=== PATIENT | female | born 1965 | race Caucasian/White ===

== ENCOUNTER 2024-03-25 20:11 | Emergency (ER) | payer BC, SELFPAY ==
[2024-03-25 20:20] VITALS: BP 183/85
[2024-03-25 20:36] LABS: % Basophils 0.5 % (0-2); % Eosinophils 2.2 % (0-6); % Immature Granulocytes 0.3 % (0-0.5); % Lymphocytes 33.2 % (20.5-51.1); % Monocytes 5.2 % (1.7-9.3); % Neutrophils 58.6 % (42.2-75.2); Absolute Eosinophils 0.2 10^3/uL (0-0.7); Absolute Lymphocytes 2.9 10^3/uL (1.2-3.4); Absolute Monocytes 0.5 10^3/uL (0.1-0.6); Absolute Neutrophils 5.1 10^3/uL (1.4-6.5); Hematocrit 37.7 % (37.0-47.0); Hemoglobin 13.3 g/dL (12.0-16.0); Mean Corp Hgb Conc. 35.3 g/dL (33.0-37.0); Mean Corpuscular Volume 84.9 fL (81.0-99.0); Mean Platelet Volume 10.4 fL (7.4-10.4); Nucleated Red Blood Cells % 0 %; Platelet Count 240 10^3/uL (130-400); Red Blood Cell Count 4.44 10^6/uL (4.20-5.40); Red Cell Dist. Width 13.4 % (11.5-14.5); White Blood Cell Count 8.7 10^3/uL (4.8-10.8)
[2024-03-25 21:01] LABS: ALT (SGPT) 25 U/L (0-35); AST (SGOT) 31 U/L (14-36); Albumin 4.6 g/dl (3.5-5.0); Alkaline Phosphatase 73 U/L (38-126); Blood Urea Nitrogen 27 mg/dl (7-17); Calcium 9.4 mg/dl (8.4-10.2); Carbon Dioxide 29 mmol/L (22-30); Chloride 102 mmol/L (98-107); Glucose 117 mg/dl (70-99); Potassium 4.1 mmol/L (3.5-5.1); Sodium 142 mmol/L (135-145); Total Bilirubin 0.4 mg/dl (0.2-1.3); Total Protein 6.9 g/dl (6.3-8.2); eGFR > 60.00
[2024-03-25 21:02] LABS: Troponin I < 0.012 ng/ml
--- NOTE | 2024-03-25 22:53 | ED.GENMED ---
History of Present Illness
<RODDY Serrato - Last Filed: 03/26/24 01:47>
General
Chief Complaint: Chest Pain
Source: patient and family
Time Seen by Provider: 03/25/24 22:44
Nursing documentation reviewed up to this point in time: agreed with
History of Present Illness
History of Present Illness:
Patient is a 58 year old female presenting to the ED with complaints of chest pain x 1 day. She states it started last night and described it as a chest tightness. It starts in the middle of the chest and radiates around her entire back. She said it
felt like she had a waist band on around her chest. The pain is not worse with movement. Currently the pain is rated a 4/10 but the severity comes and goes. She had a near syncopal episode in [place] 3[place] in [place] where she got dizzy and light
headed. She currently is not dizzy. Patient denies loss of consciousness and any sort of fall. Something like this has never happened to her before. She denies palpitations sob headache fever abdominal pain.
Patient has a PMH of HTN which is controlled on verapamil and carvedilol. Patient also has a history of controlled anemia asthma and GERD. She denies any alcohol or tobacco use.
Past History
<RODDY Serrato - Last Filed: 03/26/24 01:47>
Past History
ED Past Medical History: Asthma, GERD, Other and Other
Patient has exhibited threatening behavior?: No
Social History
Tobacco: Non-smoker
Personal:
Living: with family
Employment: Employed
Review of Systems
<RODDY Serrato - Last Filed: 03/26/24 01:47>
Review of Systems
Allergies reviewed?: Yes
Other source history: family
Constitutional: Reports no symptoms
Respiratory: Reports no symptoms
Cardiac: Reports chest pain
ABD/GI: Reports no symptoms
Neurological: Reports dizzy
Phy Exam
<Guy Roa [facility] - Last Filed: 03/26/24 01:47>
General Physical Exam
General Presentation: well appearing
General age: appears stated age
General Skin: warm
General Habitus: normal
General Mental: alert
Cardiovascular Exam
Cardiovascular Exam: regular rate/rhythm, no edema, no gallop, no JVD and no murmur
Pulmonary Exam
Pulmonary Exam: lungs clear, no respiratory distress, no rales, chest non tender, no crackles, no rhonchi, no stridor, no wheezing and no cough
Scores
<Guy Janina, [facility] - Last Filed: 03/26/24 01:47>
Heart Score for Chest Pain Patients
STEMI patient?: No
History: Slightly or Non-Suspicious
ECG: Normal
Age: >45 - <65 years
Risk Factors: No Risk Factors
Troponin: </= Normal Limit
Heart Score for Chest Pain Patients: 1
Heart Score Risk: 2.5% MACE over next 6 weeks
Course
<Guy Alonsodoreen [facility] - Last Filed: 03/26/24 01:47>
Orders/Labs/Results
Orders:
Orders
03/25/24 20:11
Electrocardiogram (*1) Urgent
Reason for Study: Chest Pain
EKG- Treatment ONCE
03/25/24 20:30
Complete Blood Count/With Diff Urgent
Comprehensive Metabolic Panel Urgent
Troponin I Urgent
03/26/24 00:38
CR Chest - 2 Views Urgent
Comment:
Reason For Exam: cp
Abnormal Lab Results
03/25/24
20:30
BUN 27 H mg/dl
(7-17)
Glucose 117 H mg/dl
(70-99)
03/25/24 20:30
03/25/24 20:30
Vital Signs
Initial and Last Documented VS:
Initial Vital Signs
Temp Pulse Resp BP Pulse Ox
98.5 F 73 18 183/85 100
03/25/24 20:20 03/25/24 20:20 03/25/24 20:20 03/25/24 20:20 03/25/24 20:20
Last Documented Vital Signs
Temp Pulse Resp BP Pulse Ox
98.5 F 63 13 136/68 98
03/25/24 20:20 03/26/24 00:30 03/26/24 00:30 03/26/24 00:09 03/26/24 00:30
<Bradly Steele, DO - Last Filed: 03/26/24 00:43>
Orders/Labs/Results
Orders:
Orders
03/25/24 20:11
Electrocardiogram (*1) Urgent
Reason for Study: Chest Pain
EKG- Treatment ONCE
03/25/24 20:30
Complete Blood Count/With Diff Urgent
Comprehensive Metabolic Panel Urgent
Troponin I Urgent
03/26/24 00:38
CR Chest - 2 Views Urgent
Comment:
Reason For Exam: cp
Abnormal Lab Results
03/25/24
20:30
BUN 27 H mg/dl
(7-17)
Glucose 117 H mg/dl
(70-99)
03/25/24 20:30
03/25/24 20:30
Vital Signs
Initial and Last Documented VS:
Initial Vital Signs
Temp Pulse Resp BP Pulse Ox
98.5 F 73 18 183/85 100
03/25/24 20:20 03/25/24 20:20 03/25/24 20:20 03/25/24 20:20 03/25/24 20:20
Last Documented Vital Signs
Temp Pulse Resp BP Pulse Ox
98.5 F 63 13 136/68 98
03/25/24 20:20 03/26/24 00:30 03/26/24 00:30 03/26/24 00:09 03/26/24 00:30
<RODDY Serrato - Last Filed: 03/26/24 01:47>
MDM/Problems Addressed
Differential Diagnosis Includes:
stable angina, anxiety, GERD, anemia
MDM/Problems Addressed:
order labs, give fluids, monitor
<RODDY Serrato - Last Filed: 03/26/24 01:47>
*Critical Care Note
Total Time (30-74mins, 75-104mins- exclusive of procedures): Not Applicable
<Bradly Steele DO - Last Filed: 03/26/24 00:43>
*Radiology
Radiology exam reviewed: all reviewed NAD by ED Provider
*Pulse Oximetry
Patient hypoxic: no
*EKG
Interpreted by ED Provider?: Yes
EKG Intrepretation Date: 03/26/24
Interpretation: normal
Comparison EKG: no comparison EKG present
Heart Rate: 63
Rate: normal
[place]: left axis deviation
Interval: normal interval
QRS Pattern: normal QRS
Ischemia: non-specific ST changes
ED Attending Note
<RODDY Serrato - Last Filed: 03/26/24 01:47>
-
Portions of this chart may have been created with voice recognition software.� Occasional wrong word or��sound alike� substitutions may have occurred due to the inherent limitations of voice recognition software.
<Bradly Steele DO - Last Filed: 03/26/24 00:43>
ED Attending Note
Patient seen and examined by attending physician: Yes
I performed the substantive portion of visit, reviewed & personally made and approve the management plan that is documented in note by myself or MIGDALIA.: Yes
ED Attending Note:
This is a pleasant 58-year-old female presents with chest pain which she states that she has had for the last day. She states that it started nearly 24 hours ago. She reports at this time tightness. It is in the middle of her chest and radiates
through to her back. She states that nothing alleviates or exacerbates the pain. She does report she was shopping with her daughter yesterday and felt lightheaded. She does report that she is not very good with hydration. She had seen a
tension worker in the past but has not followed up since the initial visit. Patient denies tach palpitations. Patient has past medical history significant for hypertension. She is on verapamil and carvedilol. Patient was seen in conjunction with
the PA student. I have reviewed and agree with the history and treatment plan presented. On my independent physical exam, patient is awake, alert, and oriented x3 minimal to no acute distress. Heart is regular rate and rhythm. Lungs are clear to
auscultation bilaterally without wheezes rales or rhonchi present. Moves all 4 extremities. Skin is warm and dry. No pedal edema noted. Troponin is negative.
Chest x-ray ordered.
Will follow-up with [facility] cardiology.
Discharge Plan
Departure
Patient Disposition: Home (Routine Discharge)
Date of Disposition: 03/26/24
Time of Disposition: 00:42
Patient with high blood pressure during this ER visit?: Yes
Condition: Good
Discharge Problem:
Chest pain, Acute dehydration
Instructions: Chest Pain CBC Follow Up, BLOOD PRESSURE
Prescriptions:
No Action
cetirizine 10 MG tablet
10 mg PO DAILY
ascorbic acid (vitamin C) [Vitamin C] 500 MG tablet
1,000 mg PO BID
verapamil 240 MG tablet extended release
240 mg PO DAILY
carvedilol 6.25 MG tablet
6.25 mg PO AMHS
atorvastatin 20 MG tablet
20 mg PO DAILY
carvedilol 3.125 MG tablet
3.125 mg PO DAILY
cholecalciferol (vitamin D3) [Vitamin D3] 1,000 UNIT capsule
1,000 unit PO DAILY
[id number]-vit K-lut [Centrum Silver Women] 1 EACH tablet
1 PO DAILY
Referrals:
Lola Wright MD [Family Provider] -
Interventions
Interventions:
*Risk Screen - Suicide Last Done: 03/25/24 20:20
*General Assessment Last Done: 03/25/24 20:20
*Neglect/Abuse Screening Last Done: 03/25/24 20:20
ED- Fall Risk Assessment Last Done: 03/26/24 00:40
*ED COVID-19 Vaccine History Last Done: 03/26/24 00:39
*Nursing Disposition Last Done: 03/26/24 01:15
ED- Cardiac Assessment Last Done: 03/25/24 23:14
Discharge Date and Time
Discharge Date/Time: 03/26/24 01:15
Print Language: [id number]
[2024-03-26 00:09] VITALS: BP 136/68
[2024-03-26 00:43] VITALS: BMI 26.6
== END 2024-03-26 01:15 | disposition home or self-care (01) ==
LOC: EMR 20:11
PROVIDERS: Emergency Medicine; EMERGENCY PHYSICIAN Student in an Organized Health Care Education/Training Program; FAMILY PHYSICIAN Internal Medicine
DX: R07.89 Other chest pain (principal); I10 Essential (primary) hypertension; E86.0 Dehydration; J45.909 Unspecified asthma, uncomplicated; K21.9 Gastro-esophageal reflux disease without esophagitis
CPT/HCPCS: 99285; 71046; 80053; 84484; 85025; 93005

== ENCOUNTER → 2024-03-29 15:54 | Outpatient (REF) | payer BC, SELFPAY | LOC: HWRCS 15:54 | PROVIDERS: ATTENDING PHYSICIAN Nurse Practitioner; FAMILY PHYSICIAN Internal Medicine | DX: R07.89 Other chest pain (principal); I10 Essential (primary) hypertension | CPT/HCPCS: 93306 ==

== ENCOUNTER → 2024-04-17 08:18 | Outpatient (REF) | payer BC, SELFPAY | LOC: RCS 08:18 | PROVIDERS: ATTENDING PHYSICIAN Nurse Practitioner; FAMILY PHYSICIAN Internal Medicine | DX: R07.89 Other chest pain (principal); I10 Essential (primary) hypertension | CPT/HCPCS: 93017; 93350 ==

== ENCOUNTER → 2024-06-20 06:48 | Outpatient (REF) | payer BC, SELFPAY | LOC: HWWDC 06:48 | PROVIDERS: ATTENDING PHYSICIAN Internal Medicine | DX: Z12.31 Encounter for screening mammogram for malignant neoplasm of breast (principal) | CPT/HCPCS: 77063; 77067 ==

== ENCOUNTER → 2024-10-06 15:18 | Outpatient (REF) | payer BC, SELFPAY | LOC: HWRAD 15:18 | PROVIDERS: ATTENDING PHYSICIAN Internal Medicine Endocrinology, Diabetes & Metabolism; FAMILY PHYSICIAN Internal Medicine | DX: D34 Benign neoplasm of thyroid gland (principal) | CPT/HCPCS: 76536 ==

== ENCOUNTER → 2024-11-10 16:30 | Outpatient (REF) | payer BC, SELFPAY | LOC: HWRAD 16:30 | PROVIDERS: FAMILY PHYSICIAN Internal Medicine | DX: R06.2 Wheezing (principal); R06.09 Other forms of dyspnea | CPT/HCPCS: 71046 ==